=== PATIENT | male | born 1935 | race Caucasian/White ===

== ENCOUNTER 2020-03-16 15:24 | Emergency (ER) | payer MEDICARE, OTHER, SELFPAY ==
[2020-03-16 15:25] VITALS: BP 149/86; PULSE 93; RESP 16; TEMP 37.8; O2SAT 96; BMI 26.8
[2020-03-16 16:12] VITALS: TEMP 38.7
--- NOTE | 2020-03-16 16:24 | CT_ITS ---
STUDY: CT ABDOMEN AND PELVIS WITHOUT CONTRAST REASON FOR EXAM: Male, 84 years old. LOW BACK and amp;amp; LEFT GROIN PAIN -- HX-CABG,AK,HTN RADIATION DOSAGE (If Supplied By Facility): CTDIvol = ( 7.37 ) mGy, DLP = ( 381.37 ) mGycm TECHNIQUE: Transaxial images were obtained from the dome of the diaphragm to the symphysis pubis without oral contrast, and without intravenous contrast. Sagittal and coronal images were reconstructed. Individualized dose optimization techniques were used for this CT. COMPARISON: None. FINDINGS: Lung bases are clear. Heart size is normal. The liver is unremarkable. The gallbladder is unremarkable. The spleen and pancreas are unremarkable. The adrenal glands are normal. The kidneys are unremarkable. No stones or hydronephrosis. The aorta is normal in caliber. There is no free fluid, free air or organized collection. No bowel obstruction or inflammatory change. Normal appendix. Urinary bladder is unremarkable. Normal abdominal wall. Normal osseous structures. CT/Abdomen/Pelvis without Cont IMPRESSION: Normal unenhanced CT of the abdomen and pelvis. Electronically Signed: Maria E Santana MD at 17:44 EST Tel , Service support ,
[2020-03-16 17:04] LABS: Absolute Lymphocyte Count 1.02 X10^3/uL (0.83-4.51); Absolute Neutrophil Count 10.9 X10^3/uL (2.0-7.7); Basophil# 0.02 X10^3/uL; Basophil% 0.2 % (0-1); Hematocrit 41.9 % (40-54); Lymphocyte # 1.02 X10^3/ul (4.0); Lymphocyte % 7.7 % (19-41); Mean Corp Hgb Conc 33.4 g/dL (32-36); Mean Corpuscular Hgb 30.8 pg (27.0-32.0); Mean Corpuscular Volume 92.3 fL (80-94); Mean Platelet Vol. 9.2 fl (6.2-12.0); Monocyte# 1.24 X10^3/uL; Monocyte% 9.4 % (0-10); NRBC Flagged by Analyzer 0 % (0-5); Neutrophil # 10.93 X10^3/uL (2.7-7.7); Neutrophil % 82.3 % (47-70); Platelet Count 180 K/mm3 (150-450); RBC Distribution Width CV 12.5 % (11.6-14.6); RBC Distribution Width SD 42.5 fl (35.1-43.9); Red Blood Count 4.54 M/mm3 (4.6-6.2); White Blood Count 13.3 K/mm3 (4.4-11.0)
[2020-03-16 17:09] LABS: Anion Gap 8 (5-15); BUN 26 mg/dL (7-18); BUN/Creat Ratio 19.3 RATIO (10-20); Calcium,Total 8.8 mg/dL (8.5-10.1); Chloride 103 mmol/L (98-107); Creatinine, Serum 1.35 mg/dL (0.70-1.30); EST Glomerular Filtration Rate 54 mL/min (>60); Est Glom Filt Rate - Afr Amer 65 mL/min (>60); Estimated Creatinine Clearance 45.51 ml/min; Glucose 111 mg/dL (74-106); Potassium 3.7 mmol/L (3.5-5.1); Sodium Level 138 mmol/L (136-145)
[2020-03-16 17:42] LABS: Bacteria 0 SEEN /hpf (None Seen); Squamous Epithelial Cells - UA 0 SEEN /hpf (0-5)
[2020-03-16 18:00] LABS: Color, Urine Amber (Yellow); Glucose, Dipstick Normal (Normal); Ketone-Dipstick 50 mg/dl (Negative); Leukocyte Esterase-Dipstick 25 /ul (Negative); Nitrite-Dipstick Negative (Negative); Occult Blood-Urine 25 /ul (Negative); Protein-Dipstick 100 mg/dl (Negative); Specific Gravity, Urine 1.025 (1.002-1.030); Urine Clarity Clear (Clear); Urine Urobilinogen 8 mg/dl (Normal)
[2020-03-16 18:01] LABS: Urine Bilirubin Dipstick 1 mg/dL (Negative)
--- NOTE | 2020-03-16 18:06 | ED.VISSUMM ---
- ER Visit Summary Date of Service: 03/16/20 Chief Complaint: Back pain History of Present Illness: The patient is a [address] Mukesh Narayanan. He reports he has left-sided back pain began 5 days ago. Is an aching pain is 1010 at worst and 7-10 currently. Is worsened by movement. He is taken Aleve and Epson salts without relief. He reports that his legs ache as well. He denies any trauma. No fall, MVA, or change in activity. He denies any radiation to his legs. No numbness or weakness in his legs. No problems with his bowels or his bladder. On review of systems patient complains of frequent urination approximately 3 weeks ago that seemed to resolve. He denies any dysuria at this time. Physical Examination: Vitals: Stable. Afebrile. General: Well-nourished and well-developed. Head: Normocephalic atraumatic. Neck: Supple, no lymphadenopathy. No JVD. Nontender. Cardiovascular: Regular rate and rhythm. No murmurs. Respiratory: No respiratory distress. Clear to auscultation bilaterally. Abdominal: Soft, nontender, nondistended, normal bowel sounds. No guarding, rebound, or peritoneal signs. Back: No vertebral tenderness. No true CVA tenderness. He does have mild tenderness palpation just below his left CVA. He has good range of motion without any difficulty. He is neuro vas intact distal this. 5 out of 5 dorsiflexion, plantarflexion, extensor hallucis longus bilaterally. Normal sensation light touch throughout. 2+ dorsalis pedis pulse bilaterally. Extremities: Nontender, no edema. Skin: Normal color, no rash. Neurologic: Alert and oriented ?3. Cranial nerves II through XII are intact. Normal strength and sensation. Psych: Normal affect. Test Results: CBC shows a white count of 13.3 with segmented neutrophils of 82, lymphocytes of 8. Chem-7 shows a glucose of 111, BUN of 26, creatinine 1.35. UA shows leukocytes, blood, ketones. This was sent for culture. Clinical Impression(s) from Imaging Studies Abdomen/Pelvis CT 03/16/20 16:24 IMPRESSION: Normal unenhanced CT of the abdomen and pelvis. Electronically Signed: Maria E Santana MD at 17:44 EST Tel , Service support , Emergency Department Course and Treatment: Patient reports that he was seen in urgent care and they report that he may have COVID-19 as he has a fever. I discussed with him the fact that he does not have any respiratory symptoms that I would be more concerned that he would have more indolent infection like a prostatitis. He has refused a rectal exam. His urine was sent for culture and he was given Bactrim p.o. He refused pain medications while here. Treatment Plan: Patient did have a COVID-19 test sent. He will be discharged on a week of Bactrim while his urine returns from culture. He is instructed to follow-up with his primary care physician in 5 to 7 days if not improving. He will be given a prescription for Colace and [place] as well. Return to the emergency department for any worsening symptoms. Disposition: To home in improved and stable condition. Impression: 1. Low back pain. This note was generated with [employer] dictation software. It may contain incorrect words, spelling, and punctuation that were not noted in review of the chart prior to signing ED Disposition - Plan for ED Patient: Disposition: Home or Assisted Living Instructions: ED Back Pain Acute or Chronic Prescriptions: Smz/Tmp Ds [Bactrim Ds] 1 tab PO BID #14 tab Prescription Printed Docusate Sodium [Colace] 100 mg PO DAILY #20 cap Prescription Printed Hydrocodone Bitart/Apap 5-325 [[place] 5MG-325MG] 1 tab PO Q6H PRN PRN 3 Days #10 tab PRN Reason: Pain Prescription Printed Referrals: Mukesh Narayanan III, MD [Primary Care Provider] - 5-7 Days
[2020-03-16 18:18] LABS: Mucous, Urine 1+ /hpf (<or=2+); Red Blood Cells-Urine 0-5 SEEN /hpf (0-5); White Blood Cells 0-5 SEEN /hpf (0-5)
[2020-03-16] MEDS: Smz/Tmp Ds Tablet 1 TABLET PO (19:16)
[2020-03-16 19:29] VITALS: BP 152/85; PULSE 81; RESP 18; O2SAT 98
== END 2020-03-16 19:30 | disposition home or self-care (01) ==
PROVIDERS: Emergency Provider Emergency Medicine; PCP Family Medicine
DX: M54.5 Low back pain (principal)
CPT/HCPCS: 74176; 80048; 81001; 85025; 87086; 87635; 99283; A4216; U0003